=== PATIENT | male | born 1960 | race Caucasian/White ===

== ENCOUNTER 2020-06-20 19:28 | Emergency (ER) | payer OTHER ==
[2020-06-20] MEDS ORDERED: KETOROLAC 60 MG/2 ML VIAL IM STA (19:51)
--- NOTE | 2020-06-20 19:53 | ED Physician Documentation ---
History of Present Illness - Stated complaint Stated Complaint: GLF - Chief complaint Chief Complaint: Trauma Ext - Additonal information Additional information: Very pleasant 59-year-old male presents to the emergency department with acute l eft shoulder pain. He reports that yesterday evening he tripped on carpeting in his mom's house and was going to fall he reached out with his left arm to the counter but missed it and fell onto the left shoulder. He did not strike his head or have any loss of consciousness. He is not anticoagulated. He has a history of previous rotator cuff tear and has had surgery related to this. His orthopedic doctor is Dr. Gamboa in the [facility]. [place]. He has an appointment with his orthopedic doctor next week for further evaluation of the shoulder but was advised to come to the ER for x-ray imaging today. He has placed himself in a sling and reports that the arm feels better when in the sling. He has no numbness or paresthesias. Review of Systems Constitutional: reports: Reviewed and negative Eyes: reports: Reviewed and negative Nose: reports: Reviewed and negative Throat: reports: Reviewed and negative Cardiac: reports: Reviewed and negative Respiratory: reports: Reviewed and negative GI: reports: Reviewed and negative Skin: reports: Reviewed and negative Musculoskeletal: reports: Joint pain. denies: Extremity pain, Extremity swelling, Joint swelling Neurologic: reports: Reviewed and negative Psychiatric: reports: Reviewed and negative PD PAST MEDICAL HISTORY - Allergies Allergies/Adverse Reactions: Allergies Allergy/AdvReac Type Severity Reaction Status Date / Time hydromorphone [From Dilaudid] Allergy Hallucinati Verified 06/20/20 19:49 ons Latex, Natural Rubber Allergy Unknown Verified 06/20/20 19:49 PD ED PE NORMAL - General General: Alert and oriented X 3, No acute distress, Well developed/nourished - HEENT HEENT: Atraumatic, PERRL, EOMI - Neck Neck: Supple, no meningeal sign, No bony TTP, No adenopathy - Extremities Extremities: No deformity. No: No tenderness to palpate (tenderness left anterior and lateral shoulder and proximal humerus. Pt able to full adduct and abduct arm. 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 He reports a history of previous left rotator cuff pathology. On exam today he has good range of motion of the shoulder though painful with abduction. X-ray does not show any acute pathology. Patient has a appointment next week with his orthopedic doctor for further follow-up of what I suspect is a reinjury of his rotator cuff. Departure - Departure Disposition: 01 Home, Self Care Clinical Impression: Shoulder pain, left Qualifiers: Chronicity: acute Qualified Code(s): M25.512 - Pain in left shoulder Condition: Stable Record reviewed to determine appropriate education?: Yes Instructions: ED Torn Rotator Cuff Follow-Up: Julio Gamboa MD [Physician No Access] - Comments: Killian, the x-ray of your shoulder does not show anything broken or dislocated. However as we discussed you most likely have reinjured your rotator cuff. Please continue to follow-up with the orthopedic doctor as scheduled next week. If you develop numbness or tingling in the hand your arm becomes swollen we have any other emergent concerns please return to the ER
[2020-06-20 19:59] VITALS: BP 167/89
--- NOTE | 2020-06-20 20:11 | XRAY Report ---
PROCEDURE: Shoulder 3 View LT INDICATIONS: fall; r/o fx TECHNIQUE: 3 views of the shoulder were acquired. COMPARISON: None. FINDINGS: Bones: No fractures or dislocations. No suspicious bony lesions. Visualized ribs appear intact. M ild degenerative change of the shoulder. Soft tissues: No suspicious soft tissue calcifications. IMPRESSION: No fracture or dislocation. Reviewed by: Dwayne Arcos MD on 06/20/2020 8:10 PM PDT Approved by: Dwayne Arcos MD on 06/20/2020 8:10 PM PDT Station ID: [id number]
== END 2020-06-20 20:27 | disposition home or self-care (01) ==
LOC: ED 19:28
DX: M25.512 Pain in left shoulder (principal)
CPT/HCPCS: 96372; 99283

== ENCOUNTER 2020-10-11 15:10 | Outpatient (CLI) | payer OTHER | END 2020-10-11 15:11 | disposition home or self-care (01) | LOC: COV 15:10 | PROVIDERS: ATTEND Family Medicine | DX: Z20.822 Contact with and (suspected) exposure to COVID-19 (principal) ==